=== PATIENT | male | born 1975 | race Caucasian/White ===

== ENCOUNTER 2022-04-05 13:15 | Observation (INO) | payer OTHER, SELFPAY ==
[2022-04-05] VITALS (23 sets, daily range): BP systolic 98–140; BP diastolic 77–89; PULSE 67–139; RESP 12–26; TEMP 36.2–36.7; O2SAT 98–100; BMI 19.3
--- NOTE | ~2022-04-05 | XR_ITS ---
XR chest 2V DATE: 04/05/2022 13:45 INDICATION: Chest pain. Chest tightness. TECHNIQUE: PA and lateral views COMPARISON: None FINDINGS: There is bilateral moderate hyperinflation of the lungs. No pulmonary infiltrate or consoli dation, pleural effusion or pulmonary vascular congestion or pneumothorax. Normal heart size. No garland r or mediastinal enlargement. Osteopenia. IMPRESSION: Bilateral hyperinflation; no active cardiopulmonary disease Osteopenia Reviewed, dictated and finalized at location A.
--- NOTE | 2022-04-05 13:20 | ECG_ITS ---
Measurements Intervals [place] Rate: 138 P: 74 RI: 130 QRS: 74 QRSD: 86 T: 22 QT: 284 QTc: 432 Interpretive Statements SINUS TACHYCARDIA WITH OCCASIONAL ECTOPIC PREMATURE COMPLEXES NONSPECIFIC ST ABNORMALITY ABNORMAL ECG NO PREVIOUS ECG AVAILABLE FOR COMPARISON Electronically Signed On 04-05-2022 14:35:43 CDT by Johnny Eid M.D.
--- NOTE | 2022-04-05 13:30 | ED.CHESTPAIN ---
HPI - Chest Pain General Chief Complaint: Chest Pain Stated Complaint: chest pain Time Seen by Provider: 04/05/22 13:20 History of Present Illness HPI narrative: 46-year-old male presents emergency room secondary to chest pain. States he woke up this morning his normal state of health and about 7:00 this morning felt like his heart was racing and he has some trouble breathing. He is got some pressure type sensation in his chest. He states he had similar episode to this a couple years ago went to another emergency department. He states they told him that there was no evidence of a heart attack at that time. He states he sat in the emergency room for 4 hours and finally went home. Is not followed up with cardiology since that time. He has been smoking about 1 pack/day for last 30 years. Strong family history as his father is already had coronary artery bypass graft as well as a brother in his 40s also had coronary artery bypass grafting performed. He denies any recent exertional chest pain or shortness of breath. He is not vaccinated for COVID. He is not employed. Related Data Allergies Allergy/AdvReac Type Severity Reaction Status Date / Time No Known Allergies Allergy Unverified 11/06/12 13:02 Review of Systems Review of Systems: CONSTITUTIONAL: Denies fever, chills, or sweats. EYES: Denies visual changes, redness, or discharge. ENT: Denies rhinorrhea, congestion, sore throat, or otalgia. CARDIOVASCULAR: Patient complaining of chest pain for like his heart is racing at this time. RESPIRATORY: Denies cough or dyspnea. GASTROINTESTINAL: Denies abdominal pain, nausea, vomiting, or diarrhea. GENITOURINARY: Denies dysuria or hematuria. SKIN: Denies rash or itching. MUSCULOSKELETAL: Denies back pain, joint pain, or myalgia. NEUROLOGIC: Denies headache, numbness, or weakness. PSYCHIATRIC: Denies anxiety or depression. [facility] Past Medical History Medical History (Updated 04/05/22 @ 15:04 by Noel Dhillon DO) No pertinent past medical history Surgical History Surgical History (Updated 04/05/22 @ 13:59 by Noel Dhillon DO) No pertinent past surgical history Family History Family History (Updated 04/05/22 @ 13:59 by Noel Dhillon DO) Other Heart disease Social History Social History (Updated 04/05/22 @ 14:00 by Noel Dhillon DO) Smoking status: Current every day smoker Exam Narrative: APPEARANCE: Very anxious Head normocephalic and atraumatic. EYES: PERRLA/EOMI, conjunctivae very clear. NOSE: Normal with no drainage EARS:TMS clear Joie Barnett, with good light reflex. THROAT: Pharynx clear, no exudate. NECK: Supple. No adenopathy, no masses. RESPIRATORY: Airway patent, respirations nonlabored. Clear to auscultation bilaterally, no rales, rhonchi, wheezing. CARDIOVASCULAR: Regular rate and rhythm without murmurs, rubs, or gallops. ABDOMINAL: Soft, nontender, nondistended, no hepatosplenomegaly Musculoskeletal: Moves all extremities. Strength/ROM intact, No edema, No calf tenderness. NEURO: Alert. Cranial nerves II through XII intact. Normal gait. Good coordination. Nonfocal examination. SKIN:: Warm, dry. Normal Color PSYCHIATRIC: Normal affect/mood, normal interaction Course Vital Signs Vital signs: Vital Signs Temperature 98.1 F 04/05/22 13:21 Pulse Rate 133 H 04/05/22 13:21 Respiratory Rate 26 H 04/05/22 13:21 Blood Pressure 140/89 04/05/22 13:21 Pulse Oximetry 100 04/05/22 13:21 Oxygen Delivery Room Air 04/05/22 13:21 Temperature 98.1 F 04/05/22 13:21 Pulse Rate 85 04/05/22 14:30 Respiratory Rate 16 04/05/22 14:30 Blood Pressure 116/84 04/05/22 14:01 Pulse Oximetry 100 04/05/22 14:30 Oxygen Delivery Room Air 04/05/22 13:21 MDM - Chest Pain MDM Narrative Medical decision making narrative: Patient describes significant risk factors for cardiac disease including a strong family history of his father and his brother who was in his 40s alr
[2022-04-05 13:38] LABS: Basophils Percent Auto 0.3 % (0.2-1.2); Eosinophils Absolute Auto 0.2 K/mm3 (0-0.3); Hematocrit 43.8 % (42.0-52.0); Hemoglobin 14.5 g/dL (14.0-18.0); Immature Granulocyte Absolute 0.03 K/mm3 (0.00-0.031); Immature Granulocyte Percent A 0.4 % (0-0.5); Lymphocytes Absolute Auto 2.41 K/mm3 (0.9-3.2); Lymphocytes Percent Auto 33.4 % (18.3-44.2); Mean Corpuscular HGB Conc 33.1 g/dl (32-36); Mean Corpuscular Hemoglobin 32.1 pg (26-34); Mean Corpuscular Volume 96.9 fl (80-100); Mean Platelet Volume 10.3 fl (7.4-10.4); Monocytes Absolute Auto 0.6 K/mm3 (0.1-0.6); Monocytes Percent Auto 8.9 % (2.6-8.5); Neutrophils Absolute Auto 3.9 K/mm3 (1.3-6.7); Platelet Count Result 196 k/mm3 (150-375); Red Blood Count 4.52 M/mm3 (4.6-6.20); Red Cell Distribution Width 13.2 % (11.5-14.5); White Blood Count 7.2 K/mm3 (4.5-10.0)
--- NOTE | 2022-04-05 13:41 | PC.NURSE ---
Patient to radiology
[2022-04-05] MEDS: ASPIRIN 81 MG CHEWABLE TABLET 324 MG PO (13:46)
[2022-04-05] MEDS: NITROGLYCERIN SL 0.4 MG TABLET SUBLINGUAL (13:46)
[2022-04-05] MEDS: METOPROLOL TARTRATE INJ 5 MG/5 ML VIAL IV PUSH (13:47)
[2022-04-05 13:48] LABS: Alanine Aminotransferase 26 U/L (6-50); Albumin Level 4.7 g/dL (3.5-5.1); Alkaline Phosphatase 162 U/L (38-126); Anion Gap 12 mmol/L (8-16); Aspartate Amino Transferase 26 U/L (17-59); Bilirubin,Total 0.5 mg/dL (0.2-1.3); Blood Urea Nitrogen 6 mg/dL (9-20); Calcium 9.4 mg/dL (8.4-10.2); Carbon Dioxide 22 mmol/L (22-30); Chloride 104 mmol/L (98-107); Estimated CRCL calculation 81 ml/min; Estimated Glomerular Filt Rate > 60; Glucose 121 mg/dL (65-110); INR 1.1; Lipase 98 U/L (23-300); Potassium 3.7 mmol/L (3.4-5.0); Prothrombin Time 13.4 Seconds (11.1-14.7); Sodium 138 mmol/L (137-145)
[2022-04-05 13:49] LABS: Partial Thromboplastin Time 27.9 SECONDS (22.3-36.8)
[2022-04-05 13:59] LABS: Troponin I < 0.012 ng/mL (0.000-0.034)
--- NOTE | 2022-04-05 14:45 | PM.IMHP ---
H&P: HPI History of Present Illness Date/Time: 04/05/22 14:45 Chief Complaint: Chest pain. Narrative: This is a 46-year-old male smoker with history of GERD, ulcers, kidney stones, and anxiety who presented to the emergency department from home for evaluation of chest pain. He reports intermittent episodes of chest pain over the last couple of years which he localizes more to the lower sternal/epigastric region. The pain is described as a squeezing and on occasion throbbing sensation, associated with nausea, dizziness, sweats, and mild shortness of breath. He went to [facility] couple of years ago with similar symptoms however he left without being seen and he never followed up. This morning he was feeling in his usual state of health and he took his dogs outside to play before going inside to play some games on the computer. He started to developed the squeezing sensation in his chest not longer after and so he decided to take a shower to see if that could cause him down as he was feeling anxious. Unfortunately his symptoms seem to get worse and he came in for evaluation. On arrival to the emergency department he was tachycardic and EKG showed sinus tachycardia (rate 138) with occasional ectopy. Initial troponin was negative though he continues to have discomfort and I was asked to admit him in this setting. With further questioning it sounds as though he takes Pepto-Bismol quite frequently for indigestion symptoms though he denies those have been worse than usual. He drinks couple of cups of coffee a day and otherwise avoid significant caffeine. He does not drink alcohol. He has not had exertional chest pain or shortness of breath. No pleuritic pain, near-syncope, or syncope. Stool is occasionally dark from Pepto-Bismol but that is unchanged. Currently he is resting comfortably but reports feeling anxious as his dad and brother both have history a history of aortic aneurysms, his brother had an ascending aortic aneurysm repair done at the age of 40. Review of Systems Review of Systems: Twelve systems were reviewed. No fever. No cold or flu symptoms. He has lost about 10 lb in the last 2 months, unintentionally. He admits that his appetite is not great though that is not necessarily changed. No hematemesis or hematochezia. Occasional dark stools which he attributes to Pepto-Bismol use. Except as documented, all other systems were reviewed and are negative. [facility] Past Medical History Medical History (Updated 04/05/22 @ 20:30 by Puja Oakley PA-C) Anxiety Gastroesophageal reflux disease Kidney stones Tobacco dependence Ulcer Surgical History Surgical History No pertinent past surgical history Family History Family History (Updated 04/05/22 @ 20:26 by Puja Oakley PA-C) Father Heart disease Sibling Ascending aortic aneurysm Social History Social History (Updated 04/05/22 @ 20:27 by Puja Oakley PA-C) Social History: Surrogate decision maker: Talya Araiza, mother. Code status: Full code. Smoking packs per day: 1.5 Smoking cigarettes per day: 30.0 Years smoked: 31 Smoking pack-years: 46.50 Smoking status: Current every day smoker Tobacco type: cigarettes Alcohol intake: never Substance use: never Living arrangements: with family Occupation/Education: unemployed Spiritual care concerns: No Meds Home Medications and Allergies Home Medications Medication Instructions Recorded Confirmed Type No Home Medications 04/05/22 04/05/22 History Allergies Allergy/AdvReac Type Severity Reaction Status Date / Time No Known Allergies Allergy Unverified 11/06/12 13:02 Vital Signs Vital Signs - 24 hr 04/05/22 13:21 04/05/22 13:33 04/05/22 13:47 Temperature 98.1 F Pulse Rate 133 H 106 H 106 H Respiratory Rate 26 H Blood Pressure 140/89 Pulse Oximetry 100 Oxygen Delivery Room A
--- NOTE | 2022-04-05 16:47 | ADMGEN ---
This patient, Td Mccarthy, was admitted to IMU Room 200-01 at 1636 on 04/05/2022. Report received from Giovani FONTENOT. Patient/family oriented to hospital policies and general routines including ID bracelet, bed and alarms, visiting hours, pain management, procedures, bathroom and other care routines, personal items, smoking policy, room service/diet, and visiting hours. Information on how to activate the Rapid Response Team has been discussed. Patient/Family are encouraged to report perceived risks to care and to ask questions if they do not understand what they are told or what they should do.
[2022-04-05 17:00] LABS: Troponin I < 0.012 ng/mL (0.000-0.034)
[2022-04-05 20:14] LABS: Troponin I < 0.012 ng/mL (0.000-0.034)
[2022-04-05 21:08] LABS: D Dimer < 0.22 ug/mL (<0.48)
[2022-04-05] MEDS: PANTOPRAZOLE SODIUM IV 40 MG VIAL IV PUSH (21:27)
[2022-04-06] VITALS (7 sets, daily range): BP systolic 106–126; BP diastolic 63–97; PULSE 64–84; RESP 16; TEMP 36.1–36.6; O2SAT 100
--- NOTE | 2022-04-06 | EST_ITS ---
Patient Info Name: Td Mccarthy Age: 46 years : 1975 Gender: Male Ht: 69 in Wt: 120 lbs BSA: 1.61 m2 Exam Date: 04/06/2022 12:08 PM Exam Location: [facility] Patient Status: Inpatient Admit Date: 04/05/2022 Staff Ordering Physician: Williams Cruz MD Attending Provider: Tom Bardales MD Exercise Technologist: Cecilia Mckay RDCS Exercise Physician: Williams Cruz MD Exam Type: CA stress test treadmill Study Info Indications R07.9 - Chest pain, unspecified A treadmill exercise stress test was performed. Summary 1. Normal sinus rhythm - normal ECG. 2. No abnormal ST/T wave changes with exercise. 3. Graded exercise test to 81% age predicted maximum heart rate clinically and electrocardiographically negative. Protocol: [facility] ECG Details Stage: REST Duration (min): 1 min : 28 sec Speed (mph): 0.0 Grade (%): 0 HR (bpm): 80 SBP (mmHg): 146 DBP (mmHg): 94 METS: --- Stage: REST Duration (min): 4 min : 3 sec Speed (mph): 0.0 Grade (%): 0 HR (bpm): 109 SBP (mmHg): 146 DBP (mmHg): 94 METS: --- Stage: STAGE 1 Duration (min): 1 min : 0 sec Speed (mph): 1.7 Grade (%): 10 HR (bpm): 118 SBP (mmHg): 146 DBP (mmHg): 94 METS: --- Stage: STAGE 1 Duration (min): 2 min : 0 sec Speed (mph): 1.7 Grade (%): 10 HR (bpm): 111 SBP (mmHg): 146 DBP (mmHg): 94 METS: --- Stage: STAGE 1 Duration (min): 3 min : 0 sec Speed (mph): 1.7 Grade (%): 10 HR (bpm): 112 SBP (mmHg): 145 DBP (mmHg): 89 METS: --- Stage: STAGE 2 Duration (min): 1 min : 0 sec Speed (mph): 2.5 Grade (%): 12 HR (bpm): 119 SBP (mmHg): 145 DBP (mmHg): 89 METS: --- Stage: STAGE 2 Duration (min): 2 min : 0 sec Speed (mph): 2.5 Grade (%): 12 HR (bpm): 111 SBP (mmHg): 143 DBP (mmHg): 89 METS: --- Stage: STAGE 2 Duration (min): 3 min : 0 sec Speed (mph): 2.5 Grade (%): 12 HR (bpm): 118 SBP (mmHg): 143 DBP (mmHg): 89 METS: --- Stage: STAGE 3 Duration (min): 1 min : 0 sec Speed (mph): 3.4 Grade (%): 14 HR (bpm): 131 SBP (mmHg): 147 DBP (mmHg): 102 METS: --- Stage: STAGE 3 Duration (min): 2 min : 0 sec Speed (mph): 3.4 Grade (%): 14 HR (bpm): 138 SBP (mmHg): 147 DBP (mmHg): 102 METS: --- Stage: STAGE 3 Duration (min): 3 min : 0 sec Speed (mph): 3.4 Grade (%): 14 HR (bpm): 138 SBP (mmHg): 138 DBP (mmHg): 90 METS: --- Stage: STAGE 4 Duration (min): 0 min : 21 sec Speed (mph): 4.2 Grade (%): 16 HR (bpm): 144 SBP (mmHg): 138 DBP (mmHg): 90 METS: --- Stage: RECOVERY Duration (min): 0 min : 38 sec Speed (mph): 0.0 Grade (%): 0 HR (bpm): 132 SBP (mmHg): 138 DBP (mmHg): 90 METS: --- -----
[2022-04-06] MEDS: ONDANSETRON INJ 4 MG/2 ML VIAL IV PUSH (04:29)
[2022-04-06 05:35] LABS: Cholesterol 160 mg/dL (0-200); HDL Direct 37 mg/dL; Triglycerides 125 mg/dL (<150)
[2022-04-06 05:46] LABS: LDL Cholesterol Direct 85 mg/dL
--- NOTE | 2022-04-06 08:00 | ECHO_ITS ---
Patient Info Name: Td Mccarthy Age: 46 years : 1975 Gender: Male Ht: 69 in Wt: 130 lbs BSA: 1.69 m2 HR: 69 bpm BP: 126 / 97 mmHg Heart Rhythm: Sinus Rhythm Technical Quality: Fair Exam Date: 04/06/2022 7:33 AM Exam Location: [facility] Patient Status: Inpatient Admit Date: 04/05/2022 Staff Ordering Physician: Puja Oakley PA-C Rn Case Management: Leanne Clarke RDCS Attending Provider: Tom Bardales MD Referring Physician: Cele GARCIA; Exam Type: CA echo doppler color flow Study Info Indications - CHEST PAIN, SMOKER Complete two-dimensional, color flow and Doppler transthoracic echocardiogram is performed. Summary 1. Complete two-dimensional, color flow and Doppler transthoracic echocardiogram is performed. 2. Left ventricular chamber dimension is normal. 3. Left ventricular systolic function is normal, estimated at 60-65%. 4. There is moderate aortic valve sclerosis. 5. The aortic valve is probable trileaflet. 6. Aortic valve is sclerotic and possibly bicuspid. Appears to be mildly stenotic. 7. The aortic root size at the sinus of Valsalva is mildly dilated. Left Ventricle Left ventricular chamber dimension is normal. Left ventricular systolic function is normal, estimated at 60-65%. The left ventricular diastolic function is grade I diastolic dysfunction. Right Ventricle Right ventricular chamber dimension is normal. Left Atria Left atrial chamber dimension is normal. Right Atria Right atrial chamber dimension is normal. Aortic Valve The aortic valve is probable trileaflet. There is moderate aortic valve sclerosis. Aortic valve is sclerotic and possibly bicuspid. Appears to be mildly stenotic. Pulmonic Valve The pulmonic valve is normal. Mitral Valve The mitral valve has normal leaflets. Tricuspid Valve The tricuspid valve leaflets are normal. Pericardium/Pleural The pericardium appears normal. Aorta The aortic root size at the sinus of Valsalva is mildly dilated. Left Ventricular Outflow Tract Name Value Normal LVOT 2D LVOT Diameter 2.0 cm LVOT Doppler LVOT Peak Gradient 2 mmHg LVOT Mean Gradient 1 mmHg LVOT VTI 16 cm LVOT VTI/AV VTI Ratio 0.3 LVOT Stroke Volume 50 ml LVOT CO 3.3 l/min LVOT CI 1.9 l/min/m2 Pulmonic Valve Name Value Normal RVOT Doppler RVOT Peak Gradient 2 mmHg PV Doppler PV Peak Gradient 5 mmHg Mitral Valve Name Value
--- NOTE | 2022-04-06 08:32 | PM.CNCAR ---
Assessment and Plan Assessment and plan (1) Chest pain: Code(s): R07.9 - Chest pain, unspecified Status: Acute Plan This is a 46-year-old man who has been having intermittent episodes of nonexertional chest pain for a while. Acute coronary syndrome has been ruled out by ECG and troponin levels. His symptoms are not occurring with exertion and are therefore atypical of angina. Because of his risk factors of family history and smoking I would like to perform an exercise stress test and I will try to get that done this morning. If that is negative he can be discharged from my perspective. Williams Cruz MD [facility] History of Present Illness History of Present Illness Consult date/time: 04/06/22 08:32 Consult reason: chest pain Reason For Visit: Chest pain Narrative: This is a 46-year-old man I am seeing at the request of the hospitalist because of chest pain. The patient has no previous history of cardiac problems to the best of his knowledge. He has been having episodes of intermittent chest pain for a while. He states that he has not sure has a hard time telling me how long this has been going on. He had an episode yesterday that was more severe or intense and so he came to the emergency room for evaluation. The patient states that he was in his usual state of health yesterday when this began in the morning he was making some coffee and having a cigarette in bringing his dogs outside for a walk. As he was doing these activities he started to experience central chest pain that he has describes as a burning/squeezing like sensation. It did not have any radiation to any other location was no associated diaphoresis nausea or vomiting. He decided to go back in the house and take a shower the think that if he relaxed it might improve but it did not so he came in for evaluation. In the emergency room his electrocardiogram showed sinus tachycardia but no significant ST or T-wave abnormalities. His troponin level was negative. He thinks after about an hour altogether the pain subsided. He thinks it faded away on its own and does not recall it responding to any medication he might have been given in the emergency room. When his usual state of health he states he is an active patient who is able to carry on activities of the day occluding walking distances and performing manual labor without any symptoms of any kind. 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 He denies any symptoms of orthopnea PND or edema he has not been having any palpitations or syncopal episodes. He did have an echocardiogram done this morning at which was being performed as I entered the room to see him in consultation. My initial impression is that the examination looks unremarkable. Obviously I will be fully interpreting the study later in the day. Principal/coronary risk factor includes longstanding cigarette smoking as well as a family history of heart disease in his father. His chest x-ray shows evidence of significant chronic lung disease in my opinion Review of Systems Constitutional: Constitutional: Reports no additional constitutional complaints Eyes: Eyes: Reports no additional eye complaints ENT: Reports system reviewed and no additional complaints, except as documented Cardiovascular: Cardiovascular: Reports as per HPI Respiratory: Respiratory: Reports as per HPI Gastrointestinal: Gastrointestinal: Reports no additional gastrointestinal complaints Musculoskeletal: Musculoskeletal: Reports no additional musculoskeletal complaints Integumentary/Breasts: Skin/Breast: Reports system reviewed and no additional complaints, except as docu Neurologic: Reports system reviewed and no additional complaints, except as documented Psychiatric: Psychiatric: Reports no additional psychiatric complaints Endocrine: Endocrine: Reports no additional endocrine complaints Hematologic/Ly
[2022-04-06] MEDS: PANTOPRAZOLE SODIUM IV 40 MG VIAL IV PUSH (09:50)
--- NOTE | 2022-04-06 12:25 | WPDGICN ---
Assessment and Plan Assessment and plan (1) Chest pain: Code(s): R07.9 - Chest pain, unspecified Status: Acute Assessment and Plan: Patient has chest pain. This does not particularly sound like acid reflux. Agree with Cardiology workup including stress testing. I would should suggest patient try antacids. Such as Tums, Rolaids are PPI such as Prilosec. If pain persist an outpatient EGD can be performed electively. I do not think there is urgency to do this present should certainly should not be performed prior to the anticipated stress test today. It is okay with the GI service for patient to be discharged if stabilized by Cardiology. (2) Weight loss: Code(s): R63.4 - Abnormal weight loss Status: Acute Assessment and Plan: Patient is a 10lb weight loss. This is very nonspecific. A balanced diet is recommended to the patient. He should monitor this closely as an outpatient. He should be establish with primary care physician and close monitoring of this. There are many reasons why could lose weight but establishing a good diet and monitoring his initial step in evaluation. (3) Anxiety: Code(s): F41.9 - Anxiety disorder, unspecified Status: Acute (4) Continuous tobacco abuse: Code(s): Z72.0 - Tobacco use Status: Acute GI Consult Note Consult date/time: 04/06/22 12:25 Reason for consult: Chest pain HPI: Td Mccarthy is a 46 year old male I am asked to see at the request the hospitalist because of chest pain. Patient states he was in his usual state of health till this morning when he awoke with substernal squeezing chest pain. This prompted him to go to the emergency room where he was admitted for observation. Patient denies any heartburn. He does report that he eats well without difficulty. Has had good bowel habits. He states he may have had a 10lb weight loss over the last 4-5 months. Patient states he infrequently will take Pepto-Bismol. He does smoke cigarettes frequently. Review of Systems Review of Systems: Review systems noncontributory. [facility] Past Medical History Medical History (Updated 04/05/22 @ 20:30 by Puja Oakley PA-C) Anxiety Gastroesophageal reflux disease Kidney stones Tobacco dependence Ulcer Surgical History Surgical History No pertinent past surgical history Family History Family History (Updated 04/05/22 @ 20:26 by Puja Oakley PA-C) Father Heart disease Sibling Ascending aortic aneurysm Social History Social History (Updated 04/05/22 @ 20:27 by Puja Oakley PA-C) Social History: Surrogate decision maker: Talya Araiza, mother. Code status: Full code. Smoking packs per day: 1.5 Smoking cigarettes per day: 30.0 Years smoked: 31 Smoking pack-years: 46.50 Smoking status: Current every day smoker Tobacco type: cigarettes Alcohol intake: never Substance use: never Living arrangements: with family Occupation/Education: unemployed Spiritual care concerns: No Meds Home Medications and Allergies Home Medications Medication Instructions Recorded Confirmed Type No Home Medications 04/05/22 04/05/22 History Allergies Allergy/AdvReac Type Severity Reaction Status Date / Time No Known Allergies Allergy Unverified 11/06/12 13:02 Vital Signs Vital Signs - 24 hr 04/05/22 13:21 04/05/22 13:33 04/05/22 13:47 Temperature 98.1 F Pulse Rate 133 H 106 H 106 H Respiratory Rate 26 H Blood Pressure 140/89 Pulse Oximetry 100 Oxygen Delivery Room Air 04/05/22 13:24 04/05/22 13:32 04/05/22 13:45 Temperature Pulse Rate 139 H 115 H 105 H Respiratory Rate 25 H 20 Blood Pressure Pulse Oximetry 100 99 Oxygen Delivery 04/05/22 14:00 04/05/22 14:01 04/05/22 14:15 Temperature Pulse Rate 84 82 94 Respiratory Rate 18 12 24 H Blood Pressure 116
--- NOTE | 2022-04-06 15:19 | PM.DS ---
DS: Admitting Diagnosis Discharge Date 04/06/2022 Admitting Diagnosis chest pain DS: Discharge Diagnosis Discharge Diagnosis (1) Chest pain: Code(s): R07.9 - Chest pain, unspecified Status: Acute Assessment and Plan: Somewhat atypical for cardiac pain. I am suspicious that it may be more GI in etiology. Pulmonary embolism considered given tachycardia on presentation, thus will check D-dimer and chest CTA if positive. Echocardiogram has been ordered given reports of ascending aortic aneurysms in his father and brother requiring repair in their early 40s. Continue to monitor on telemetry overnight and trend troponins. (2) Weight loss: Code(s): R63.4 - Abnormal weight loss Status: Acute Assessment and Plan: Patient reports an unintentional 10 lb weight loss in the last 2 months. Given pains as detailed above with weight loss and GERD symptoms, I will ask GI to see him in consultation for possible endoscopy. Trial PPI. Check TSH. (3) Gastroesophageal reflux disease: Code(s): K21.9 - Gastro-esophageal reflux disease without esophagitis Status: Acute Assessment and Plan: Trial PPI as detailed above. (4) Tobacco dependence: Code(s): F17.200 - Nicotine dependence, unspecified, uncomplicated Status: Acute Assessment and Plan: Smoking cessation is encouraged. 5 minutes was spent counseling the patient on smoking cessation and he seems motivated. He declines the need for nicotine at this time and he intends on quitting ?cold turkey.? DS: Summary Hospital Course Reason for hospitalization: Chest pain. Narrative: This is a 46-year-old male smoker with history of GERD, ulcers, kidney stones, and anxiety who presented to the emergency department from home for evaluation of chest pain. He reports intermittent episodes of chest pain over the last couple of years which he localizes more to the lower sternal/epigastric region. The pain is described as a squeezing and on occasion throbbing sensation, associated with nausea, dizziness, sweats, and mild shortness of breath. He went to [facility] couple of years ago with similar symptoms however he left without being seen and he never followed up. This morning he was feeling in his usual state of health and he took his dogs outside to play before going inside to play some games on the computer. He started to developed the squeezing sensation in his chest not longer after and so he decided to take a shower to see if that could cause him down as he was feeling anxious. Unfortunately his symptoms seem to get worse and he came in for evaluation. On arrival to the emergency department he was tachycardic and EKG showed sinus tachycardia (rate 138) with occasional ectopy. Initial troponin was negative though he continues to have discomfort and I was asked to admit him in this setting. With further questioning it sounds as though he takes Pepto-Bismol quite frequently for indigestion symptoms though he denies those have been worse than usual. He drinks couple of cups of coffee a day and otherwise avoid significant caffeine. He does not drink alcohol. He has not had exertional chest pain or shortness of breath. No pleuritic pain, near-syncope, or syncope. Stool is occasionally dark from Pepto-Bismol but that is unchanged. Currently he is resting comfortably but reports feeling anxious as his dad and brother both have history a history of aortic aneurysms, his brother had an ascending aortic aneurysm repair done at the age of 40. Hospital Course: patient was seen by Cardiology patient's 3 sets of cardiac enzymes are negative the no acute changes on EKG acute coronary syndrome is ruled to further evaluate patient had a exercise stress test was essentially normal without any ischemic event, patient also seen by GI and suspect GERD recommended PPI, patient is clinically stable will discharge the patient home today Time Spent wit
== END 2022-04-06 15:40 | disposition home or self-care (01) ==
LOC: ANHED 15:04 → ANHIMU 20:58
PROVIDERS: Physician Assistant; Admitting Provider Internal Medicine; Emergency Provider Emergency Medicine; Visit Provider Family Medicine
DX: R07.9 Chest pain, unspecified (principal); R63.4 Abnormal weight loss; F17.210 Nicotine dependence, cigarettes, uncomplicated; K21.9 Gastro-esophageal reflux disease without esophagitis; Z87.442 Personal history of urinary calculi; F41.9 Anxiety disorder, unspecified; Z68.1 Body mass index [BMI] 19.9 or less, adult
CPT/HCPCS: 36415; 71046; 80053; 80061; 83690; 84443; 84484; 85025; 85380; 85610; 85730; 93005; 93017; 93306; 96374; 96375; 99285; A9270; C9113; G0378; G0379; J0131; J2405

== ENCOUNTER 2022-06-25 10:09 | Emergency (ER) | payer OTHER, SELFPAY ==
--- NOTE | ~2022-06-25 | XR_ITS ---
EXAMINATION: XR chest 1V portable DATE: 06/25/2022 10:29 INDICATION: Medial chest pain radiating to the back. TECHNIQUE: A single frontal view of the chest was obtained on 2 radiographs. COMPARISON: Chest 2 views 04/05/2022 FINDINGS: There are lucencies at the lung apices, consistent with emphysema. No pleural effusion or p neumothorax. The heart size is normal. IMPRESSION: 1. Emphysema. Reviewed, dictated and finalized at location A. IMPRESSION: 1. Emphysema.
--- NOTE | ~2022-06-25 | CT_ITS ---
EXAMINATION: CTA chest PE protocol DATE: 06/25/2022 14:44 INDICATION: chest pain and dyspnea TECHNIQUE: Computed tomography angiography (CTA) of the chest was performed with 100 mL Omnipaque-350 intravenous contrast timed to evaluate the pulmonary arteries. Coronal maximum intensity projection 3D-reconstructions were created by the technologist. The dose-length product (DLP) was 167.61 mGy-cm. Automated exposure control and iterative reconstruction technique were employed. COMPARISON: None. FINDINGS: Lung parenchyma and airways: Upper lung paraseptal emphysema. Pleura: Unremarkable. Thoracic inlet, axillae and chest wall: Unremarkable. Thoracic aorta: 5.0 cm ascending thoracic aortic aneurysm. No sign of aortic rupture. Mediastinum: Normal. Heart and pericardium: Aortic valve calcification. Coronary artery calcifications: Absent. Upper abdomen: No significant finding. Bones: No acute osseous finding. Pulmonary arteries: Study quality: Adequate. No pulmonary emboli detected. IMPRESSION: No CT evidence of acute pulmonary embolus. 5 cm ascending thoracic aortic aneurysm, recommend referra l to evaluate for endovascular or surgical repair. Heavily calcified aortic valve may reflect stenoti c or bicuspid morphology. Paraseptal emphysema. Reviewed, dictated and finalized at location K. IMPRESSION: No CT evidence of acute pulmonary embolus. 5 cm ascending thoracic aortic aneur ysm, recommend referral to evaluate for endovascular or surgical repair. Heavil y calcified aortic valve may reflect stenotic or bicuspid morphology. Parasepta l emphysema.
[2022-06-25 10:12] VITALS: BP 148/104; PULSE 102; RESP 21; O2SAT 99
--- NOTE | 2022-06-25 10:15 | ECG_ITS ---
Measurements Intervals [place] Rate: 97 P: 66 MO: 137 QRS: 61 QRSD: 85 T: 35 QT: 326 QTc: 415 Interpretive Statements SINUS RHYTHM POSSIBLE RIGHT ATRIAL ENLARGEMENT LEFT ATRIAL ENLARGEMENT DELAYED PRECORDIAL R/S TRANSITION BASELINE ARTIFACT- I, III, AVR, AVL, AVF BORDERLINE ECG COMPARED TO ECG 04/05/2022 13:21:22 SINUS RHYTHM NOW PRESENT Electronically Signed On 06-25-2022 12:00:48 CDT by Howie Miramontes D.O.
[2022-06-25 10:26] VITALS: PULSE 90
[2022-06-25 10:28] VITALS: O2SAT 100
[2022-06-25 10:32] LABS: Basophils Percent Auto 0.3 % (0.2-1.2); Eosinophils Absolute Auto 0.1 K/mm3 (0-0.3); Eosinophils Percent Auto 1.3 % (0-4.4); Immature Granulocyte Absolute 0.02 K/mm3 (0.00-0.031); Immature Granulocyte Percent A 0.3 % (0-0.5); Lymphocytes Absolute Auto 1.82 K/mm3 (0.9-3.2); Lymphocytes Percent Auto 25.8 % (18.3-44.2); Mean Corpuscular HGB Conc 32.6 g/dl (32-36); Mean Corpuscular Hemoglobin 32.3 pg (26-34); Mean Corpuscular Volume 98.9 fl (80-100); Mean Platelet Volume 10.2 fl (7.4-10.4); Monocytes Absolute Auto 0.5 K/mm3 (0.1-0.6); Monocytes Percent Auto 6.5 % (2.6-8.5); Neutrophils Absolute Auto 4.7 K/mm3 (1.3-6.7); Neutrophils Percent Auto 65.8 % (45.5-73.1); Platelet Count Result 216 k/mm3 (150-375); Red Blood Count 4.65 M/mm3 (4.6-6.20); Red Cell Distribution Width 13.6 % (11.5-14.5); White Blood Count 7.1 K/mm3 (4.5-10.0)
[2022-06-25] MEDS: ASPIRIN 81 MG CHEWABLE TABLET 324 MG PO (10:33)
[2022-06-25 10:39] LABS: Partial Thromboplastin Time 28.4 SECONDS (22.3-36.8); Prothrombin Time 13.1 Seconds (11.1-14.7)
[2022-06-25 10:40] LABS: Alanine Aminotransferase 24 U/L (6-50); Albumin Level 4.7 g/dL (3.5-5.1); Alkaline Phosphatase 172 U/L (38-126); Anion Gap 11 mmol/L (8-16); Aspartate Amino Transferase 30 U/L (17-59); Bilirubin,Total 0.4 mg/dL (0.2-1.3); Blood Urea Nitrogen 8 mg/dL (9-20); Calcium 9.9 mg/dL (8.4-10.2); Carbon Dioxide 27 mmol/L (22-30); Chloride 102 mmol/L (98-107); Estimated CRCL calculation 87 ml/min; Estimated Glomerular Filt Rate > 60; Glucose 132 mg/dL (65-110); Lipase 71 U/L (23-300); Potassium 4.5 mmol/L (3.4-5.0); Sodium 140 mmol/L (137-145)
[2022-06-25 10:42] LABS: Magnesium 1.9 mg/dL (1.6-2.3)
[2022-06-25 10:51] LABS: Troponin I < 0.012 ng/mL (0.000-0.034)
[2022-06-25 10:54] LABS: D Dimer < 0.27 ug/mL (<0.48)
[2022-06-25 12:24] VITALS: BP 121/90; PULSE 77; RESP 16; O2SAT 99
--- NOTE | 2022-06-25 12:45 | ED.CHESTPAIN ---
HPI - Chest Pain General Chief Complaint: Chest Pain Stated Complaint: chest pain Time Seen by Provider: 06/25/22 10:09 Source: RN notes reviewed History of Present Illness HPI narrative: Patient presents emergency department from home for chest pain. Patient states that he has had chest pain has been off and on for numerous months but has been more constant since approximately 2200 last night. The pain is located over the left inferior chest just the left of the sternum with a point area of pain located states that the pain does not radiate pain is described as sharp and stabbing in nature does hurt with deep breaths and movement he denies any fevers or chills shortness of breath abdominal pain nausea vomiting but does state at times it feels like his heart is racing he states he was admitted before for his chest pain and was diagnosed with a bicuspid aortic valve Related Data Allergies Allergy/AdvReac Type Severity Reaction Status Date / Time No Known Allergies Allergy Unverified 06/25/22 10:34 Review of Systems Review of Systems: Gen.: Denies fevers or chills ENT: Denies congestion Respiratory: Denies shortness of breath or cough CV: See HPI GI: Denies abdominal pain nausea, emesis or diarrhea Musculoskeletal: Denies back pain or muscle pain Neuro: Denies numbness, tingling, weakness or focal weakness Skin: Denies rash Except as documented, all other systems reviewed and negative [facility] Past Medical History Medical History Anxiety Gastroesophageal reflux disease Kidney stones Tobacco dependence Ulcer Surgical History Surgical History No pertinent past surgical history Family History Family History (Updated 04/05/22 @ 20:26 by Puja Oakley PA-C) Father Heart disease Sibling Ascending aortic aneurysm Social History Social History Social History: Surrogate decision maker: Talya Araiza, mother. Code status: Full code. Smoking packs per day: 1.5 Smoking cigarettes per day: 30.0 Years smoked: 31 Smoking pack-years: 46.50 Smoking status: Current every day smoker Tobacco type: cigarettes Alcohol intake: never Substance use: never Spiritual care concerns: No Exam Narrative: APPEARANCE: No acute distress, nontoxic, resting in bed EYES: EOMI HEENT: Normocephalic, atraumatic, OMM RESPIRATORY: No respiratory distress Clear to auscultation bilaterally with no rhonchi wheezing or rales. CARDIOVASCULAR: Regular rate and rhythm without murmurs rubs or gallops. Chest wall: Point tenderness just to the left of the sternum and region of ribs 9 and 10 pain increased with deep inspiration overlying erythema or ecchymosis ABDOMINAL: Soft, nontender, nondistended, no rebound or guarding MUSCULOSKELETAl: Moves all extremities. No clubbing, cyanosis or edema. NEURO: Awake and alert. Following commands, speech normal, no focal deficits SKIN:: Warm, dry. No rashes lesions or abrasions PSYCHIATRIC: Normal affect/mood, Course Course Emergency Course: Patient states pain is resolved following GI cocktail and Toradol Reviewed old records. At that time patient had cardiac evaluation felt pain was likely GI versus musculoskeletal Called discussed Dr. Rigoberto Rader at [facility] for vascular surgeon discussed the patient's aneurysm at this time he feels patient may be followed up in his office he does request patient be started metoprolol 25 mg twice daily Discussed with patient results of workup and diagnosis. Discussed need for follow-up with primary care, proper use of medication, and reasons to return to the emergency department. Patient understands and agrees to current treatment plan Vital Signs Vital signs: Vital Signs Pulse Rate 102 H 06/25/22 10:12 Respiratory Rate 21 H 06/25/22 10:12 Blood Pressu
[2022-06-25] MEDS: KETOROLAC 30 MG/ML VIAL (*BKC) IV PUSH (14:08)
[2022-06-25 14:10] LABS: Troponin I < 0.012 ng/mL (0.000-0.034)
[2022-06-25 16:53] VITALS: PULSE 77
[2022-06-25] MEDS: METOPROLOL TARTRATE 25 MG TABLET PO (16:53)
[2022-06-25 16:55] LABS: Troponin I < 0.012 ng/mL (0.000-0.034)
[2022-06-25 17:00] VITALS: BP 126/76; PULSE 77; RESP 16; O2SAT 100
== END 2022-06-25 17:02 | disposition home or self-care (01) ==
PROVIDERS: Emergency Provider Emergency Medicine
DX: R07.89 Other chest pain (principal); I71.2 Thoracic aortic aneurysm, without rupture; K21.9 Gastro-esophageal reflux disease without esophagitis; Z87.442 Personal history of urinary calculi; F17.210 Nicotine dependence, cigarettes, uncomplicated; J43.9 Emphysema, unspecified
CPT/HCPCS: 36415; 71045; 71275; 80053; 83690; 83735; 84484; 85025; 85380; 85610; 85730; 93005; 96374; 99284; A9270; J1885; Q9967

== ENCOUNTER 2022-11-26 16:28 | Emergency (ER) | payer OTHER, SELFPAY ==
--- NOTE | ~2022-11-26 | XR_ITS ---
EXAMINATION: XR chest 2V DATE: 11/26/2022 17:16 INDICATION: Shortness of breath and left-sided chest pain TECHNIQUE: PA and lateral views of the chest were obtained. COMPARISON: Chest radiograph and CT dated 06/25/2022 FINDINGS: Lucency, architectural distortion and curvilinear opacities in the bilateral upper lung zones corresp onding to bullous emphysema prior CT. Bilateral nipple shadows project along the inferior margin of t he bilateral anterior fifth ribs. No other airspace opacities, pulmonary edema, pleural effusion or p neumothorax. The cardiomediastinal silhouette is normal. Mild upper thoracic spondylosis. IMPRESSION: 1. No acute cardiopulmonary disease. Reviewed, dictated and finalized at location A. URCE COORDINATOR
--- NOTE | 2022-11-26 16:29 | ECG_ITS ---
Measurements Intervals [place] Rate: 77 P: 197 [place]: 178 QRS: 51 QRSD: 80 T: 45 QT: 372 QTc: 421 Interpretive Statements SINUS RHYTHM POSSIBLE LEFT ATRIAL ENLARGEMENT COMPARED TO ECG 06/25/2022 10:24:10 NO SIGNIFICANT CHANGES Electronically Signed On 11-27-2022 14:45:58 [employer] MANAGER by Hakan Boudreaux M.D.
[2022-11-26 16:44] VITALS: BP 133/97; PULSE 70; RESP 17; TEMP 36.7; O2SAT 100
[2022-11-26 16:54] LABS: Basophils Percent Auto 0.3 % (0.2-1.2); Eosinophils Absolute Auto 0.2 K/mm3 (0-0.3); Eosinophils Percent Auto 2.1 % (0-4.4); Hematocrit 43.7 % (42.0-52.0); Hemoglobin 14.8 g/dL (14.0-18.0); Immature Granulocyte Absolute 0.04 K/mm3 (0.00-0.031); Immature Granulocyte Percent A 0.4 % (0-0.5); Lymphocytes Absolute Auto 2.68 K/mm3 (0.9-3.2); Lymphocytes Percent Auto 28.2 % (18.3-44.2); Mean Corpuscular HGB Conc 33.9 g/dl (32-36); Mean Corpuscular Hemoglobin 32.8 pg (26-34); Mean Corpuscular Volume 96.9 fl (80-100); Mean Platelet Volume 10.6 fl (7.4-10.4); Monocytes Absolute Auto 0.7 K/mm3 (0.1-0.6); Monocytes Percent Auto 6.8 % (2.6-8.5); Neutrophils Absolute Auto 5.9 K/mm3 (1.3-6.7); Neutrophils Percent Auto 62.2 % (45.5-73.1); Platelet Count Result 192 k/mm3 (150-375); Red Blood Count 4.51 M/mm3 (4.6-6.20); Red Cell Distribution Width 13.3 % (11.5-14.5); White Blood Count 9.5 K/mm3 (4.5-10.0)
[2022-11-26 17:03] LABS: Alanine Aminotransferase 32 U/L (6-50); Albumin Level 4.6 g/dL (3.5-5.1); Alkaline Phosphatase 120 U/L (38-126); Anion Gap 8 mmol/L (8-16); Aspartate Amino Transferase 34 U/L (17-59); Bilirubin,Total 0.6 mg/dL (0.2-1.3); Blood Urea Nitrogen 8 mg/dL (9-20); Calcium 9.3 mg/dL (8.4-10.2); Carbon Dioxide 27 mmol/L (22-30); Chloride 102 mmol/L (98-107); Estimated CRCL calculation 93 ml/min; Estimated Glomerular Filt Rate > 60; Glucose 109 mg/dL (65-110); Lipase 113 U/L (23-300); Potassium 3.8 mmol/L (3.4-5.0); Sodium 137 mmol/L (137-145)
[2022-11-26 17:04] LABS: INR 1.1; Prothrombin Time 13.3 Seconds (11.1-14.7)
[2022-11-26 17:15] LABS: Troponin I < 0.012 ng/mL (0.000-0.034)
== END 2022-11-26 18:43 | disposition left against medical advice (07) ==
PROVIDERS: Emergency Provider Emergency Medicine; PCP Internal Medicine
DX: R07.9 Chest pain, unspecified (principal)
CPT/HCPCS: 36415; 71046; 80053; 83690; 84484; 85025; 85610; 85730; 93005; 99199

== ENCOUNTER 2022-12-25 00:24 | Day surgery (SDC) | payer OTHER, SELFPAY ==
[2022-12-17 15:41] VITALS: BMI 18.2
[2022-12-25 08:40] VITALS: BP 153/108; PULSE 73; RESP 16; TEMP 36.3; O2SAT 100; BMI 19.5
[2022-12-25] MEDS: LACTATED RINGERS 1,000 ML 150 ML IV CONT (08:58)
--- NOTE | 2022-12-25 09:18 | PM.HPGS ---
History of Present Illness History of Present Illness Consent: Risks, benefits, and alternatives have been discussed and questions answered. Patient agrees to proceed with procedure. Chief complaint: atypical chest pain Narrative: Td Mccarthy Jr. is a 47 year old male Presents for EGD. Patient has substernal chest pressure and discomfort poorly described that persists. Symptoms occur intermittently but occur daily. Often present for extended periods of time. Not always related to diet. Patient recently found to have aortic aneurysm. EGD is requested because of ongoing atypical chest discomfort. Patient is maintained chronically on Protonix 40mg daily that has not totally alleviated his symptoms. Patient denies dysphagia. Review of Systems Review of Systems: Review of systems noncontributory. [facility] Past Medical History Medical History Anxiety Gastroesophageal reflux disease Kidney stones Tobacco dependence Ulcer Surgical History Surgical History No pertinent past surgical history Family History Family History (Updated 04/05/22 @ 20:26 by Puja Oakley PA-C) Father Heart disease Sibling Ascending aortic aneurysm Social History Social History Social History: Surrogate decision maker: Talya Araiza, mother. Code status: Full code. Smoking packs per day: 2 Smoking cigarettes per day: 40.0 Years smoked: 31 Smoking pack-years: 62.00 Smoking status: Current every day smoker Tobacco type: cigarettes Additional smoking assessment comments: 1PK SINCE 2019 NOW DOWN 0.5 PK/DAY Alcohol intake: never Substance use: former Substance use type: marijuana Living arrangements: with family Occupation/Education: unemployed Spiritual care concerns: No Meds Home Medications and Allergies Home Medications Medication Instructions Recorded Confirmed Type metoprolol tartrate 25 mg tablet 25 mg PO BID #30 tabs 06/25/22 12/25/22 Rx pantoprazole 40 mg tablet,delayed 40 mg PO HS #20 tabs 06/25/22 12/25/22 Rx release (Protonix) Allergies Allergy/AdvReac Type Severity Reaction Status Date / Time No Known Allergies Allergy Verified 12/25/22 08:49 Vital Signs Vital Signs - 24 hr 12/25/22 08:40 Temperature 97.3 F L Pulse Rate 73 Respiratory Rate 16 Blood Pressure 153/108 H Pulse Oximetry 100 Oxygen Delivery Room Air Exam Narrative: Physical exam reveals patient be alert. Vital signs stable. HEENT exam is unremarkable. Patient is anicteric. Lungs are clear to auscultation and percussion. Heart is without murmur or extra sounds. Abdomen bowel sounds present soft nontender with no organomegaly. Rectal exam is deferred at this time. Assessment and Plan Assessment and plan (1) Atypical chest pain: Code(s): R07.89 - Other chest pain Status: Acute Assessment and Plan: Patient has atypical chest pain etiology of this is unclear. EGD will be planned. Agree with maintaining patient on chronic Protonix because of his symptoms. Patient also has aneurysm of the aorta which raises concern over etiology of the discomfort. Further recommendations may be given after endoscopy.
[2022-12-25 10:02] VITALS: BP 104/75; PULSE 72; RESP 22; O2SAT 99
[2022-12-25 10:12] VITALS: BP 116/88; PULSE 66; RESP 19; O2SAT 100
[2022-12-25 10:38] VITALS: BP 126/89; PULSE 67; RESP 18; O2SAT 100
== END 2022-12-25 10:39 | disposition home or self-care (01) ==
PROVIDERS: PCP Internal Medicine; Visit Provider Internal Medicine Gastroenterology
PROC: 0DJ08ZZ Inspection of Upper Intestinal Tract, Via Natural or Artificial Opening Endoscopic (ICD-10-PCS; CPT 43235; principal; 2022-12-25 10:00)
DX: R07.89 Other chest pain (principal); I71.9 Aortic aneurysm of unspecified site, without rupture; K21.9 Gastro-esophageal reflux disease without esophagitis; F17.210 Nicotine dependence, cigarettes, uncomplicated
CPT/HCPCS: 43239; 87081; J2704; J7120

== ENCOUNTER 2023-06-03 00:54 | Day surgery (SDC) | payer OTHER, SELFPAY ==
--- NOTE | 2023-06-03 13:08 | WPDANESEPPF ---
Anes - Initial Pre Proc Eval Procedure: Operation Date: 06/03/23 14:00 Proposed Procedures p Trans Esophageal Echo - Williams Cruz MD Date/Time: 06/03/23 13:08 Surgeon: Williams Cruz MD Pre Op Diagnosis: Bicuspid aortic valve Patient Data Age: 47 Gender: M Height: 1.75 m Weight: 61.4 kg Allergies Allergy/AdvReac Type Severity Reaction Status Date / Time No Known Allergies Allergy Verified 05/31/23 16:58 Home Medications Medication Instructions Recorded Confirmed Type metoprolol tartrate 25 mg tablet 25 mg PO BID #30 tabs 06/25/22 05/31/23 Rx pantoprazole 40 mg tablet,delayed 40 mg PO HS #20 tabs 06/25/22 05/31/23 Rx release (Protonix) acetaminophen 325 mg tablet 650 mg PO Q4H PRN Headache 05/31/23 05/31/23 History Patient hx anesthesia problems: none Family hx anesthesia problems: none Results Review: All pre-operative results and documents have been reviewed as part of the pre-operative evaluation. [facility] Past Medical History Medical History Anxiety Gastroesophageal reflux disease Kidney stones Tobacco dependence Ulcer Surgical History Surgical History No pertinent past surgical history Family History Family History (Updated 04/05/22 @ 20:26 by Puja Oakley PA-C) Father Heart disease Sibling Ascending aortic aneurysm Social History Social History Social History: Surrogate decision maker: Talya Araiza, mother. Code status: Full code. Smoking packs per day: 1 Smoking cigarettes per day: 20.0 Years smoked: 30 Smoking pack-years: 30.00 Smoking status: Heavy tobacco smoker Tobacco type: cigarettes Additional smoking assessment comments: 1PK SINCE 2019 NOW DOWN 0.5 PK/DAY Alcohol intake: former Drinks per week: 0 Alcohol use details: QUIT ETOH 13 YEARS AGO IN 2009 Substance use: former Substance use type: marijuana Living arrangements: with family Occupation/Education: unemployed Spiritual care concerns: No Anes - Eval Final PreProcedure Day of Procedure 06/03/23 13:08 Patient weight: normal Heart: regular rate and rhythm Lungs: clear to auscultation Airway: Mallampati scale class II Neurological: alert and oriented Last oral intake: >/= 8 hours ASA classification: III Emergent: no Anesthetic plan: proceed Anesthesia type and monitoring: general GIVS and standard monitoring Results Review: All pre-operative results and documents have been reviewed as part of the pre-operative evaluation. Informed Consent: The patient's anesthetic plan and its attendant risks and benefits were discussed with the patient/family/POA. Questions were solicited and answers provided to the satisfaction of the patient/family/POA.
[2023-06-03 13:39] VITALS: BP 131/100; PULSE 70; RESP 15; O2SAT 100; BMI 20.2
[2023-06-03 14:35] VITALS: BP 124/92; PULSE 72; RESP 16; O2SAT 99
--- NOTE | 2023-06-03 14:41 | P.PCNTEE_ITS ---
[facility] TransEsophageal Echocardiogram Date of procedure: 06/03/23 Procedure Type: Transesophageal echocardiogram Diagnosis: Bicuspid aortic valve Indications: Assess severity of bicuspid aortic stenosis Image Quality: Very good Findings: The left atrium is moderately enlarged the atrium was inspected in its entirety including the appendage there was no evidence of atrial thrombus. The mitral valve leaflets are normal in appearance, thin and pliable there is no mitral regurgitation. The left ventricle is of normal dimension and contract well in all segments the global ejection fraction is 60-65% by visual estimation. The aortic valve is a by leaflet apparatus that has a antral posterior raphe. One of the leaflets is sclerotic with some restriction in leaflet motion the other leaflet is thin and pliable. Overall there is a very good aortic valve orifice Nikolai valve is clearly nonstenotic functionally. There is trivial if any aortic valve regurgitation in the LV outflow tract. The right-sided chambers are normal in size and appearance the interatrial septum is intact and normal in appearance. The descending thoracic aorta and aortic arch appear to be unremarkable. Conclusions: 1. Bicuspid aortic valve which is mildly sclerotic but not significantly stenotic at this time 2. Nicely preserved left ventricular systolic function with normal left ventricular size Williams [facility] MD [facility]
[2023-06-03 14:50] VITALS: BP 133/91; PULSE 65; RESP 20; O2SAT 100
[2023-06-03 15:05] VITALS: BP 122/95; PULSE 75; RESP 25; O2SAT 100
[2023-06-03 15:15] VITALS: BP 128/98; PULSE 64; RESP 18; O2SAT 99
[2023-06-03 15:30] VITALS: BP 126/92; PULSE 64; RESP 16; O2SAT 99
== END 2023-06-03 15:57 | disposition home or self-care (01) ==
LOC: ANHENDO 10:25 → ANHCATHLAB 12:41 → ANHENDO 06-07 09:54
PROVIDERS: PCP Internal Medicine; Visit Provider Specialist
PROC: (CPT 93312; principal; 2023-06-03 14:00)
DX: Q23.1 Congenital insufficiency of aortic valve (principal); I71.21 Aneurysm of the ascending aorta, without rupture; K21.9 Gastro-esophageal reflux disease without esophagitis; F17.210 Nicotine dependence, cigarettes, uncomplicated
CPT/HCPCS: 93312; 93320; 93325; J2405; J2704; J7040

== ENCOUNTER 2024-01-23 09:53 | Outpatient (CLI) | payer OTHER, SELFPAY ==
--- NOTE | ~2024-01-23 | CT_ITS ---
EXAMINATION: CTA chest DATE: 01/23/2024 10:22 INDICATION: Bicuspid aortic valve TECHNIQUE: Computed tomographic angiography (CTA) of the chest was performed without and with 100 mL Omnipaque-350 intravenous contrast. Volume-rendered 3D-reconstructions of the aorta and large arterie s were constructed by the technologist on a separate workstation. Automated exposure control and iter ative reconstruction technique were employed. The dose-length product was 224.94 mGy-cm. COMPARISON: None. FINDINGS: Mild to moderate paraseptal emphysema at the periphery of the bilateral upper lungs, right greater th an left. No pneumonia, pulmonary edema or other pulmonary infiltrates. No pleural effusion or pneumot horax. Heart size is normal. There is aortic valve calcification along what appears consistent with r eported bicuspid aortic valve. Likely secondary fusiform aneurysm of the ascending thoracic aorta whi ch measures up to 4.9 x 4.7 cm measured orthogonal to the axis of flow on coronal and sagittal images respectively. This tapers to a normal caliber of 2.4 x 2.3 cm at the arch immediately after the take off of the left subclavian artery. The visualized more distal descending thoracic and upper abdominal aorta are normal in caliber. No aortic dissection. No pathologically enlarged thoracic lymphadenopat hy. Benign 8 mm right thyroid nodule. Visualized upper abdomen is unremarkable. Mild thoracic spondyl osis with chronic appearing mild anterior wedging of a few mid and lower thoracic vertebral bodies. IMPRESSION: 1. Fusiform ascending thoracic aortic aneurysm measuring up to 4.9 x 4.7 cm likely related to partial ly calcified bicuspid aortic valve. 2. Mild to moderate paraseptal emphysema in the upper lungs. Reviewed, dictated and finalized at location A. IMPRESSION: 1. Fusiform ascending thoracic aortic aneurysm measuring up to 4.9 x 4.7 cm lik moises related to partially calcified bicuspid aortic valve. 2. Mild to moderate paraseptal emphysema in the upper lungs.
[2024-01-23 10:15] LABS: Estimated Glomerular Filt Rate > 60
== END 2024-01-23 09:54 | disposition home or self-care (01) ==
PROVIDERS: PCP Internal Medicine; Visit Provider Specialist
DX: Q23.1 Congenital insufficiency of aortic valve (principal); J43.9 Emphysema, unspecified
CPT/HCPCS: 71275; Q9967

== ENCOUNTER 2024-09-22 00:27 | Day surgery (SDC) | payer OTHER, SELFPAY ==
[2024-09-02 13:10] VITALS: BMI 19.2
[2024-09-22 12:11] VITALS: BP 142/119; PULSE 71; RESP 18; TEMP 36.1; O2SAT 100; BMI 21.5
--- NOTE | 2024-09-22 12:23 | SUR.PREOP ---
Patient reports having half a can of Mt.Dew at 0800 as well as turkey/mashed potatoes at 0100. Dr. Lamb notified and aware. Okay to proceed with procedure.
[2024-09-22] MEDS: LACTATED RINGERS 1,000 ML 150 ML IV CONT (12:29)
--- NOTE | 2024-09-22 13:34 | P.PNAN_ITS ---
Pt seen and examined in preop bay 4 and case discussed w Dr Lamb. Pt w known aortic aneurysm, in addition to having had cp and sob for the last 2- 3 days at rest. Of note, pt has appt w software asset manager 10/2024 and is here today for EGD for underlying GERD. I had full discussion w pt and his mother about his need to see his software asset manager for full eval and treatment prior to elective EGD, possibly on an urgent basis. Once the eval is done, it can be reviewed and GI case rescheduled when appropriate. They understand the rationale and plan. Johnny Puentes DO Anes - Initial Pre Proc Eval Procedure: Operation Date: 09/22/24 13:00 Proposed Procedures p Esophagogastroduodenoscopy - Adin Lamb MD Date/Time: 09/22/24 13:34 Surgeon: Adin Lamb MD Pre Op Diagnosis: GERD Patient Data Age: 49 Gender: M Height: 1.75 m Weight: 66.1 kg Last Vital Signs Temp 97 F L 09/22/24 12:11 Pulse 71 09/22/24 12:11 Resp 18 09/22/24 12:11 BP 142/119 H 09/22/24 12:11 Pulse Ox 100 09/22/24 12:11 O2 Del Method Room Air 09/22/24 12:11 Allergies Allergy/AdvReac Type Severity Reaction Status Date / Time No Known Allergies Allergy Verified 09/22/24 12:07 Home Medications Medication Instructions Recorded Confirmed Type metoprolol tartrate 25 mg tablet 25 mg PO BID #30 tabs 06/25/22 09/22/24 Rx pantoprazole 40 mg tablet,delayed 40 mg PO HS #20 tabs 06/25/22 09/22/24 Rx release (Protonix) acetaminophen 325 mg tablet 650 mg PO Q4H PRN Headache 05/31/23 09/22/24 History Other studies: [place] [id number] [place] [address] MABEL Report Signed Patient: Td Mccarthy Jr. MR#: [id number] : 1975 Acct:[id number] Age/Sex: 47 / M ADM Date: 06/03/23 Loc: [facility] Attending Dr: Williams Cruz MD cc: Dayan, Anson GARCIA; Williams Cruz MD~ MABEL TransEsophageal Echocardiogram Date of procedure: 06/03/23 Procedure Type: Transesophageal echocardiogram Diagnosis: Bicuspid aortic valve Indications: Assess severity of bicuspid aortic stenosis Image Quality: Very good Findings: The left atrium is moderately enlarged the atrium was inspected in its entirety including the appendage there was no evidence of atrial thrombus. The mitral valve leaflets are normal in appearance, thin and pliable there is no mitral regurgitation. The left ventricle is of normal dimension and contract well in all segments the global ejection fraction is 60-65% by visual estimation. The aortic valve is a by leaflet apparatus that has a antral posterior raphe. One of the leaflets is sclerotic with some restriction in leaflet motion the other leaflet is thin and pliable. Overall there is a very good aortic valve orifice Nikolai valve is clearly nonstenotic functionally. There is trivial if any aortic valve regurgitation in the LV outflow tract. The right-sided chambers are normal in size and appearance the interatrial septum is intact and normal in appearance. The descending thoracic aorta and aortic arch appear to be unremarkable. Conclusions: 1. Bicuspid aortic valve which is mildly sclerotic but not significantly nadira notic at this time 2. Nicely preserved left ventricular systolic function with normal left ventricular size Williams Cruz MD [facility] This report may have been done utilizing a voice recognition system. Attempts have been made to correct errors. However, there may be uncorrected grammatical, spelling, and recognition errors present. Report Initialized date/time: Williams Cruz MD 06/03/231443 Electronically signed by: Williams Cruz MD 06/03/231443 Patient hx anesthesia problems: none Family hx anesthesia problems: none Results Review: All pre-operative results and documents have been reviewed as part of the pre-operative evaluation. [facility] Past Medical History Medical History Anxiety Gastroesophageal reflux disease Kidney stones Tobacco dependence Ulcer Surgical History Surgical History No pertinent past surgical history Family History Family History Father Heart disease Sibling Ascending aortic aneurysm Social History Social History Social History: Surrogate decision maker: Talya Araiza, mother. Code status: Full code. Smoking packs per day: 0.5 Smoking cigarettes per day: 10.0 Years smoked: 33 Smoking pack-years: 16.50 Smoking status: Current every day smoker Tobacco type: cigarettes Additional smoking assessment comments: CURRENTLY SMOKES 0.5 PACKS DAILY, SMOKED MORE IN THE PAST Alcohol intake: former Drinks per week: 0 Alcohol use details: QUIT ETOH IN 2009 Substance use: former Substance use type: marijuana Other substance usage details: STOPPED 2018 Living arrangements: with family Additional living arrangements comments: LIVES WITH MOM TALYA Occupation/Education: unemployed Spiritual care concerns: No Comments pt states he experiences chest pain and shortness of breath at rest, last episode 3 days ago. sedentary lifestyle.family at bedside states he has an appointment scheduled with Anthony in October. spoke with Dr. Puentes. updated Dr. Lamb. Will defer case until pt is evaluated by Dr. Cruz. Anes - Eval Final PreProcedure Day of Procedure 09/22/24 13:34 Results Review: All pre-operative results and documents have been reviewed as part of the pre- operative evaluation. Informed Consent: The patient's anesthetic plan and its attendant risks and benefits were discussed with the patient/family/POA. Questions were solicited and answers provided to the satisfaction of the patient/family/POA.
--- NOTE | 2024-09-22 13:34 | PM.IMHP ---
H&P: HPI History of Present Illness Date/Time: 09/22/24 13:34 Chief Complaint: This patient has been complaining of dysphagia for 3-4 months. He denies heartburn, nausea, vomiting. He is here for EGD. Review of Systems Review of Systems: All systems reviewed & are unremarkable except as noted in HPI and below PMFSH Past Medical History Medical History Anxiety Gastroesophageal reflux disease Kidney stones Tobacco dependence Ulcer Surgical History Surgical History No pertinent past surgical history Family History Family History (Updated 04/05/22 @ 20:26 by Puja Oakley PA-C) Father Heart disease Sibling Ascending aortic aneurysm Social History Social History Social History: Surrogate decision maker: Talya Araiza, mother. Code status: Full code. Smoking packs per day: 0.5 Smoking cigarettes per day: 10.0 Years smoked: 33 Smoking pack-years: 16.50 Smoking status: Current every day smoker Tobacco type: cigarettes Additional smoking assessment comments: CURRENTLY SMOKES 0.5 PACKS DAILY, SMOKED MORE IN THE PAST Alcohol intake: former Drinks per week: 0 Alcohol use details: QUIT ETOH IN 2009 Substance use: former Substance use type: marijuana Other substance usage details: STOPPED 2018 Living arrangements: with family Additional living arrangements comments: LIVES WITH ALKA GUTIERREZ Occupation/Education: unemployed Spiritual care concerns: No Meds Home Medications and Allergies Home Medications Medication Instructions Recorded Confirmed Type metoprolol tartrate 25 mg tablet 25 mg PO BID #30 tabs 06/25/22 09/22/24 Rx pantoprazole 40 mg tablet,delayed 40 mg PO HS #20 tabs 06/25/22 09/22/24 Rx release (Protonix) acetaminophen 325 mg tablet 650 mg PO Q4H PRN Headache 05/31/23 09/22/24 History Allergies Allergy/AdvReac Type Severity Reaction Status Date / Time No Known Allergies Allergy Verified 09/22/24 12:07 Vital Signs Vital Signs - 24 hr 09/22/24 12:11 Temperature 97 F L Pulse Rate 71 Respiratory Rate 18 Blood Pressure 142/119 H Pulse Oximetry 100 Oxygen Delivery Room Air Exam Const: General: cooperative and healthy appearing Resp: Effort & Inspection: normal respiratory effort and able to speak in complete sentences Auscultation: clear to auscultation bilaterally Cardio: Rate: regular rate Rhythm: regular rhythm GI: Inspection: normal to inspection GI Palp: No No hepatosplenomegaly present Auscultation: normal bowel sounds Rectal Exam: deferred Skin: General skin exam: normal color Psych: Appearance: grossly normal Mental Status: mental status grossly normal Assessment and Plan Assessment and plan (1) Gastroesophageal reflux disease: Code(s): K21.9 - Gastro-esophageal reflux disease without esophagitis Status: Acute Assessment and Plan: The patient is deemed a good candidate for the procedure. Consent signed. Will proceed. (2) Dysphagia: Code(s): R13.10 - Dysphagia, unspecified Status: Acute
--- NOTE | 2024-09-22 13:50 | SUR.PREOP ---
Per Dr. Puentes, patient is not appropriate candidate for procedure today due to cardiac work-up needed. Dr. Puentes spoke with patient and mother at bedside, both agreeable to reschedule procedure following cardiac work-up. Will cancel procedure for today.
== END 2024-09-22 14:05 | disposition home or self-care (01) ==
PROVIDERS: PCP Internal Medicine; Visit Provider Internal Medicine Gastroenterology
PROC: 0DJ08ZZ Inspection of Upper Intestinal Tract, Via Natural or Artificial Opening Endoscopic (ICD-10-PCS; CPT 43235; principal; 2024-09-22 13:00)
DX: R13.10 Dysphagia, unspecified (principal); K21.9 Gastro-esophageal reflux disease without esophagitis; F41.9 Anxiety disorder, unspecified; F17.210 Nicotine dependence, cigarettes, uncomplicated; Z53.8 Procedure and treatment not carried out for other reasons; Z87.442 Personal history of urinary calculi; Z86.79 Personal history of other diseases of the circulatory system; Z82.49 Family history of ischemic heart disease and other diseases of the circulatory system
CPT/HCPCS: 99212; G0463; J7120

== ENCOUNTER 2025-02-04 13:37 | Outpatient (CLI) | payer OTHER, SELFPAY ==
--- NOTE | ~2025-02-04 | CT_ITS ---
EXAMINATION: CTA chest DATE: 02/04/2025 16:22 CDT INDICATION: Ascending aortic aneurysm with bicuspid aortic valve TECHNIQUE: Computed tomographic angiography (CTA) of the chest was performed with 100 mL Omnipaque-35 0 intravenous contrast. The dose-length product was 252.60 mGy-cm. Maximum intensity projection 3D-re constructions of the aorta and other arteries were constructed by the technologist on a separate work station. COMPARISON: 01/23/2024 and dating back to 06/25/2022 FINDINGS/OBSERVATIONS: PULMONARY ARTERIES: No filling defect is identified within the main or proximal pulmonary artery. The main pulmonary artery is not enlarged. THORACIC AORTA: Redemonstration of an ascending thoracic aortic aneurysm measuring 4.6 x 4.7 cm (axia l series, image 59). Given changes in positioning and technique, this is unchanged from prior perform ed 01/23/2024. At the level of the origin of the left subclavian artery the thoracic aorta measures 2.3 x 2.2 cm (co anai series, image 57). The descending thoracic aorta is unremarkable in caliber. No significant calcified atherosclerotic disease is present. LUNGS: Redemonstration of severe paraseptal emphysema with biapical bulla. The remainder of the lungs are clear. MEDIASTINUM: No morphologically suspicious or pathologically enlarged lymph nodes are identified with in the mediastinum or bilateral axilla. BONES OF THE CHEST: No acute fracture. No significant degenerative disease. No lytic or blastic lesions. HEART: The heart is borderline enlarged, without pericardial effusion. Dense calcifications within the aortic valve. No mitral valve calcifications are present. IMPRESSION: Redemonstration of a thoracic aortic aneurysm, which given changes in positioning and technique is un changed in size from previous examination performed 01/23/2024. Redemonstration of severe paraseptal emphysema with biapical bulla, as detailed above. Reviewed, dictated and finalized at location A. IMPRESSION: Redemonstration of a thoracic aortic aneurysm, which given changes in positioni ng and technique is unchanged in size from previous examination performed 024. Redemonstration of severe paraseptal emphysema with biapical bulla, as detailed above.
--- OUTSIDE RECORDS SUMMARY | 2025-02-04 13:54 | XMS_ITS | CONTINUITY OF CARE DOCUMENT ---
Author Name char pardo Address Unknown Organization [facility] Address [address] [place] [address] [address] [place] [address] Phone [phone] Care Team Providers Care Global Clinical Leader Name Role Phone char pardo Unavailable Unavailable
--- OUTSIDE RECORDS SUMMARY | 2025-02-04 13:54 | XMS_ITS | Clinical Summary ---
Author Organization [facility] [address] [facility] [address] Address [address] [place] [address] Care Team Providers Care Repairer Resistance Welding Machines Name Role Phone Mildred Hanley MD Primary Care Provide r Allergies No known active allergies Medications metoprolol tartrate (LOPRESSOR) 25 mg immediate release tablet Take 1 tablet (25 mg total) by mouth 2 (two) times a day [address] (PROTONIX) 40 mg EC tablet Take 1 tablet (40 mg total) by mouth nightly at bedtime. 2 Active amoxicillin-clav ulanate (AUGMENTIN) 875-125 mg per tablet 2 Active acetaminophen (TYLENOL) 325 mg suppository Insert 1 suppository (325 mg total) into the rectum every 4 (four) hours as needed for pain Active Active Problems Problem Noted Date Diagnosed Date Aneurysm of ascending aorta without rupture 04/20 Bicuspid aortic valve 05/14/2023 Encounters Date Type Department Care Team Description 01/15/2025 Telephone [facility] Cardiology [address] [place] [address] Williams Cruz MD 12/24/2024 2:15 PM COUNCILOR Office Visit [facility] Cardiology at [address] [place] [address] Williams Cruz MD Bicuspid aortic valve (Primary Dx); Aneurysm of ascending aorta without rupture from Last 3 Months Medical History Medical History Date Comments Hypertension Arrhythmia Dizziness Acid indigestion Family History Relation Name Status Comments Brother Alive Father Alive Mother Alive Social History Tobacco Use Types Packs/Day Years Used Date Smoking Tobacco: Every Day Cigarettes Smokeless Tobacco: Never Tobacco Cessation:Ready to Q uit: Not Asked; Counseling Given: Not Answered AUDIT-C Answer Date Recorded Q1: How often do you have a drink containing alcohol? Never 07/12/2022 Q2: How many drinks containi ng alcohol do you have on a typical day when you are drinking? Patient does not drink Q3: How often do you have si x or more drinks on one occasion? Never 07/12/2022 Sex and Gender Information Value Date Recorded Sex Assigned at Not on file Legal Sex Male 8:20 AM CDT Gender Identity Not on file Sexual Orientation Not on file Obstetrics History Last Filed Vital Signs Vital Sign Reading Time Taken Comments Blood Pressure 124/80 12/24/2024 2:26 PM COUNCILOR Pulse 67 12/24/2024 2:26 PM COUNCILOR Temperature - - Respiratory Rate 99 05/14/2023 11:11 AM CDT Oxygen Saturation 98% 12/24/2024 2:26 PM COUNCILOR Inhaled Oxygen Concentration - - Weight 66.2 kg (146 lb) 12/24/2024 2:26 PM COUNCILOR Height 175.3 cm (5' 9 ) 12/24/2024 2:26 PM COUNCILOR Body Mass Index 21.56 12/24/2024 2:26 PM COUNCILOR Plan of Treatment Health Maintenance Due Date Last Done Comments Colon Cancer Screening-Colonoscopy 1975 Depression Screening 1975 Hepatitis C Screening 1975 DTaP/Tdap/Td Vaccine (1 - Tdap) 1988 Hepatitis B Screening 1995 Regular Well Visit/Exam 18-64 1995 Pneumococcal vaccine <65 (1 of 2 - PCV) 1996 Influenza Vaccine Completed 08/05/2024 Procedures Procedure Name Priority Date/Time Associated Diagnosis Comments POCT LIPID PANEL Routine 12/24/2024 2:23 PM COUNCILOR Bicuspid aortic valve from Last 3 Months Results * POCT lipid panel (12/24/2024 2:23 PM COUNCILOR) Cholesterol, POC 209 mg/dL HDL, POC 30 mg/dL Triglycerides, POC 201 mg/dL LDL Cholesterol POC 139 mg/dL Chol/HDL Ratio, POC 7.0 Non-HDL Cholesterol, POC 179 mg/dL Cholesterol Total, POC 209 mg/dL Capillary blood 12/24/2024 2 :23 PM COUNCILOR Williams Cruz MD POINT OF CARE TEST ORDER SANG Final Result from Last [address] [facility] Care Teams Repairer Resistance Welding Machines Relationship Specialty Start Date End Date Mildred Hanley MD [address] [place] [address] PCP - General Internal Medicine 07/12/22
--- OUTSIDE RECORDS SUMMARY | 2025-02-04 13:54 | XMS_ITS | Clinical Summary ---
Author Organization [facility] [employer] Address [address] [facility] [place] [address] Care Team Providers Care Security Specialist Name Role Phone Anson Hanley MD Primary Care Provider Source Comments [facility] [employer],non-owned Affiliates and Associated Physician Practices is amultiple site organization consisting of ambulatory clinics and hospital sitesin [place], [place], [place] and [place]. This disclosure is being madepursuant to the Care Everywhere program and may not contain all information available regarding this patient. Last updated 18.[facility] [employer] Allergies No known active allergies Medications * Be aware that medications may not be up to date on this document. Alwaysverify current medications with the patient. amoxicillin-cla vulanate (Augmentin) 875-125 MG tablet 07/09/2022 Active metoprolol tartrate IR (Lopressor) 25 MG tablet 07/10/2022 Active pantoprazole EC (Protonix) 40 MG tablet Take 40 mg by mouth at bedtime 06/26/2022 Active Social History Tobacco Use Types Packs/Day Years Used Date Smoking Tobacco: Never Assessed Sex and Gender Information Value Date Recorded Sex Assigned at Not on file Legal Sex Male 4:21 PM CDT Gender Identity Not on file Sexual Orientation Not on file Last Filed Vital Signs Vital Sign Reading Time Taken Comments Blood Pressure 127/84 07/16/2022 1:53 PM CDT Pulse 68 07/16/2022 1:53 PM CDT Temperature - - Respiratory Rate - - Oxygen Saturation 100% 07/16/2022 1:53 PM CDT Inhaled Oxygen Concentration - - Weight 58.1 kg (128 lb) 07/16/2022 1:53 PM CDT Height 175.3 cm (5' 9 ) 07/16/2022 1:53 PM CDT Body Mass Index 18.9 07/16/2022 1:53 PM CDT Plan of Treatment Health Maintenance Due Date Last Done Comments COLOGUARD (AGES 45-75) - COL ON CA SCREENING 1977 COLON MONITORING 1977 COLONOSCOPY - COLON CA SCREENING 1977 CT COLONOGRAPHY - COLON CA SCREENING 1977 Colorectal Cancer Screening 1977 FIT - COLON CA SCREENING 1977 FLEX SIG - COLON CA SCREENING 1977 LIPID TESTING 1977 HIV SCREENING 1992 HEPATITIS C SCREENING 08/14/1995 DTAP/TDAP/TD VACCINES (1 - Tdap) 1996 HEPATITIS B VACCINE (1 of 3 - 19+ 3-dose series) 1996 COVID-19 VACCINE (1 - 2023-2 5 season) 2024 DEPRESSION SCREENING 10/21/2024 INFLUENZA VACCINE (Season Ended) 2025 ZOSTER VACCINE (1 of 2) 2027 HIB VACCINE Aged Out No longer eligi ble based on patient's age to complete this topic HPV VACCINE Aged Out No longer eligi ble based on patient's age to complete this topic MENINGOCOCCAL (Group B) VACC INE SHARED DECISION-MAKING Aged Out No longer eligibl e based on patient's age to complete this topic MENINGOCOCCAL GROUPS A/C/Y/W VACCINE Aged Out No longer eligible b ased on patient's age to complete this topic PNEUMOCOCCAL VACCINE Aged Out No long er eligible based on patient's age to complete this topic Insurance [facility] Care Teams Security Specialist Relationship Specialty Start Date End Date Anson Hanley MD [address] [facility] [address] [place] [address] PCP - General Internal Medicine 07/10/22
--- OUTSIDE RECORDS SUMMARY | 2025-02-04 13:54 | XMS_ITS | Referral Summary ---
Author Organization [facility] [address] [facility] [address] Address [address] [place] [address] Care Team Providers Care Director Speech Name Role Phone Mildred Hanley MD Primary Care Provide r Encounters Date Type Department Care Team Description 01/15/2025 Telephone [facility] Cardiology [address] [facility] [address] [place] [address] Williams Cruz MD 12/24/2024 2:15 PM AUTOMATIC SERGING MACHINE OPERATOR Office Visit [facility] Cardiology at [address] [place] [phone] Williams Cruz MD Bicuspid aortic valve (Primary Dx); Aneurysm of ascending aorta without rupture from Last 3 Months Allergies No known active allergies Medications metoprolol [...] without rupture 04/20 Bicuspid aortic valve 05/14/2023 Social History Tobacco Use Types Packs/Day Years [...] Comments Blood Pressure 124/80 12/24/2024 2:26 PM AUTOMATIC SERGING MACHINE OPERATOR Pulse 67 12/24/2024 2:26 PM AUTOMATIC SERGING MACHINE OPERATOR Temperature - - Respiratory Rate 99 05/14/2023 11:11 AM CDT Oxygen Saturation 98% 12/24/2024 2:26 PM AUTOMATIC SERGING MACHINE OPERATOR Inhaled Oxygen Concentration - - Weight 66.2 kg (146 lb) 12/24/2024 2:26 PM AUTOMATIC SERGING MACHINE OPERATOR Height 175.3 cm (5' 9 ) 12/24/2024 2:26 PM AUTOMATIC SERGING MACHINE OPERATOR Body Mass Index 21.56 12/24/2024 2:26 PM AUTOMATIC SERGING MACHINE OPERATOR Plan of Treatment Not on file Procedures Procedure Name Priority Date/Time Associated Diagnosis Comments POCT LIPID PANEL Routine 12/24/2024 2:23 PM AUTOMATIC SERGING MACHINE OPERATOR Bicuspid aortic valve from Last 3 Months Results * POCT lipid panel (12/24/2024 2:23 PM AUTOMATIC SERGING MACHINE OPERATOR) Cholesterol, POC 209 mg/dL HDL, POC 30 mg/dL Triglycerides, POC 201 mg/dL LDL Cholesterol POC 139 mg/dL Chol/HDL Ratio, POC 7.0 Non-HDL Cholesterol, POC 179 mg/dL Cholesterol Total, POC 209 mg/dL Capillary blood 12/24/2024 2 :23 PM AUTOMATIC SERGING MACHINE OPERATOR Williams Cruz MD POINT OF CARE TEST ORDER SANG Final Result from Last 3 Months Insurance [facility] Care Teams Director Speech Relationship Specialty Start Date End Date Mildred Hanley MD [address] [address] PCP - General Internal Medicine 07/12/22
[2025-02-04 14:08] LABS: Estimated Glomerular Filt Rate > 60
== END 2025-02-04 13:38 | disposition home or self-care (01) ==
PROVIDERS: PCP Internal Medicine; Visit Provider Specialist
DX: I71.21 Aneurysm of the ascending aorta, without rupture (principal); J43.9 Emphysema, unspecified
CPT/HCPCS: 71275; Q9967